=== PATIENT | male | born 1960 | race Caucasian/White ===

== ENCOUNTER 2020-05-25 11:46 | Observation (INO) | payer OTHER ==
[~2020-05-25] VITALS: Ht 175.3 cm; Wt 81.6 kg
[2020-05-25 12:07] LABS: BASOPHILS % (AUTO) 0.1 % (0.0-5.0); EOSINOPHILS % (AUTO) 0.8 % (0.0-8.0); HEMATOCRIT 30.1 % (42-54); LYMPHOCYTES % (AUTO) 19.3 % (21.0-51.0); MEAN CORPUSCULAR HEMOGLOBIN 34.2 pg (27.0-33.0); MEAN CORPUSCULAR HGB CONC 35.2 g/dL (32.0-36.0); MEAN CORPUSCULAR VOLUME 97.1 fL (79-99); MONOCYTES % (AUTO) 8.3 % (3.0-13.0); NEUTROPHILS % (AUTO) 70.9 % (40.0-77.0); PLATELET COUNT (AUTO) 206 K/uL (130-400)
[2020-05-25 12:19] LABS: CREATININE 1.3 mg/dL (0.5-1.5); POTASSIUM 4.1 mmol/L (3.5-5.1)
[2020-05-25 12:22] LABS: PROTHROMBIN TIME 10.9 SEC (9.6-11.6)
[2020-05-25 12:24] LABS: ALBUMIN 3.9 g/dL (3.5-5.0); BILIRUBIN,TOTAL 0.4 mg/dL (0.2-1.0); PARTIAL THROMBOPLASTIN TIME < 20.0 SEC (26.3-35.5)
[2020-05-25] MEDS ORDERED: PANTOPRAZOLE 40 MG/VIAL ONE ×2 (12:50→21:16)
[2020-05-25] MEDS ORDERED: PANTOPRAZOLE SODIUM 80 MG in NS 100ML IVP SCH (13:00)
[2020-05-25] MEDS ORDERED: PANTOPRAZOLE 40 MG/VIAL IVP SCH (13:00)
[2020-05-25] MEDS ORDERED: ACETAMINOPHEN 325 MG TAB PO PRN (16:15)
[2020-05-25] MEDS ORDERED: ONDANSETRON HCL 4 MG/2 ML VIAL IVP PRN (16:15)
[2020-05-25] MEDS ORDERED: PANTOPRAZOLE SODIUM 80 MG in SODIUM CHLORIDE 0.9% 100 ML IVP SCH (16:15)
[2020-05-25 20:40] VITALS: BP 131/96
[2020-05-25 21:51] LABS: HEMATOCRIT 30.2 % (42-54)
[2020-05-25] MEDS ORDERED: TACR1GRA PO (22:09)
[2020-05-25 23:55] VITALS: BP 104/67
[2020-05-26] VITALS (22 sets, daily range): BP systolic 109–147; BP diastolic 72–96
[2020-05-26 05:02] LABS: BASOPHILS % (AUTO) 0.3 % (0.0-5.0); HEMATOCRIT 28.2 % (42-54); LYMPHOCYTES % (AUTO) 21.7 % (21.0-51.0); MEAN CORPUSCULAR HEMOGLOBIN 33.3 pg (27.0-33.0); MEAN CORPUSCULAR HGB CONC 33.7 g/dL (32.0-36.0); MEAN CORPUSCULAR VOLUME 98.9 fL (79-99); MONOCYTES % (AUTO) 12.7 % (3.0-13.0); NEUTROPHILS % (AUTO) 61.8 % (40.0-77.0); PLATELET COUNT (AUTO) 174 K/uL (130-400); RED BLOOD CELL COUNT(AUTO) 2.85 MIL/uL (4.50-6.20); RED CELL DISTRIBUTION WIDTH 13.2 % (11.0-15.5)
[2020-05-26 05:16] LABS: CREATININE 1.2 mg/dL (0.5-1.5); POTASSIUM 4.7 mmol/L (3.5-5.1)
[2020-05-26] MEDS ORDERED: PROPOFOL 10 MG/ML 20ML VIAL IV ONE ×2 (07:22)
[2020-05-26] MEDS ORDERED: SUCCINYLCHOLINE 200MG/10ML SYR ONE (07:22)
[2020-05-26] MEDS ORDERED: LIDOCAINE HCL 1% 20 ML VIAL ONE (07:22)
[2020-05-26] MEDS ORDERED: GLYCOPYRROLATE 1 MG/5 ML SYRINGE ONE (07:22)
[2020-05-26] MEDS ORDERED: PHENYLEPHRINE HCL 10 MG/ML 1ML VIAL IV ONE (08:01)
[2020-05-26 09:54] LABS: HEMATOCRIT 27.2 % (42-54)
[2020-05-26 15:41] LABS: HEMATOCRIT 25.6 % (42-54)
[2020-05-26] MEDS ORDERED: PEG 3350/NA SULF,BICARB,CL/KCL 4000 ML SOLN PO SCH (17:00)
[2020-05-26] MEDS: TACROLIMUS 1 MG CAPSULE PO SCH (20:42)
[2020-05-26 22:00] LABS: HEMATOCRIT 24.7 % (42-54)
[2020-05-27] VITALS (16 sets, daily range): BP systolic 110–138; BP diastolic 70–89
[2020-05-27 04:53] LABS: BASOPHILS % (AUTO) 0.3 % (0.0-5.0); EOSINOPHILS % (AUTO) 5.6 % (0.0-8.0); HEMATOCRIT 23.3 % (42-54); LYMPHOCYTES % (AUTO) 25.1 % (21.0-51.0); MEAN CORPUSCULAR HEMOGLOBIN 33.3 pg (27.0-33.0); MEAN CORPUSCULAR HGB CONC 33.9 g/dL (32.0-36.0); MEAN CORPUSCULAR VOLUME 98.3 fL (79-99); MONOCYTES % (AUTO) 11.7 % (3.0-13.0); NEUTROPHILS % (AUTO) 56.8 % (40.0-77.0); PLATELET COUNT (AUTO) 137 K/uL (130-400); RED BLOOD CELL COUNT(AUTO) 2.37 MIL/uL (4.50-6.20); RED CELL DISTRIBUTION WIDTH 13.2 % (11.0-15.5); WHITE BLOOD COUNT (AUTO) 3.8 K/uL (4.8-10.8)
[2020-05-27 05:12] LABS: CREATININE 1.1 mg/dL (0.5-1.5); POTASSIUM 3.4 mmol/L (3.5-5.1)
[2020-05-27] MEDS ORDERED: LIDOCAINE HCL-MPF 1% 2ML VIAL IV PRN (07:45)
[2020-05-27] MEDS ORDERED: POTASSIUM CHLORIDE 20MEQ/100ML 100 ML IV PRN (07:45)
[2020-05-27] MEDS ORDERED: PANT40TA PO (08:22)
[2020-05-27] MEDS ORDERED: PANTOPRAZOLE SODIUM 40 MG TABLET.DR PO SCH (09:00)
[2020-05-27] MEDS ORDERED: LIDOCAINE HCL 1% 20 ML VIAL ONE (10:01)
[2020-05-27] MEDS ORDERED: PROPOFOL 10 MG/ML 20ML VIAL IV ONE ×2 (10:01)
[2020-05-27] MEDS: TACROLIMUS 1 MG CAPSULE PO SCH (11:53)
== END 2020-05-27 15:15 | disposition home or self-care (01) ==
LOC: EDH 11:46 → EDHIP 16:03 → 3BH 21:08
PROVIDERS: ADMIT Family Medicine; ATTEND Family Medicine
DX: K92.1 Melena (principal); K29.70 Gastritis, unspecified, without bleeding; K29.80 Duodenitis without bleeding; K62.1 Rectal polyp; D64.9 Anemia, unspecified; G62.9 Polyneuropathy, unspecified; Z87.11 Personal history of peptic ulcer disease; Z94.0 Kidney transplant status; Z88.0 Allergy status to penicillin; Z88.1 Allergy status to other antibiotic agents
CPT/HCPCS: 36415 ×3; 45380; 43235; 80048 ×2; 80053; 82270; 85014 ×4; 85018 ×4; 85025 ×3; 85610; 85730; 86850; 86900; 86901; 88305; 93005; 99284; A4222; A4223; A4606; A4620 ×2; A4663; C9113 ×3; G0378 ×43; J0330; J2370; J2704 ×4; J3490; J7507 ×2

== ENCOUNTER 2022-01-23 12:59 | Observation (INO) | payer OTHER ==
[~2022-01-23] VITALS: Ht 177.8 cm; Wt 72.7 kg
[~2022-01-23 12:59] MED LIST: PANT40TA PO; TACR1GRA PO
[2022-01-23 13:47] LABS: BASOPHILS % (AUTO) 0.2 % (0.0-5.0); EOSINOPHILS % (AUTO) 1.3 % (0.0-8.0); LYMPHOCYTES % (AUTO) 13.7 % (21.0-51.0); MEAN CORPUSCULAR HEMOGLOBIN 32.5 pg (27.0-33.0); MEAN CORPUSCULAR HGB CONC 31.2 g/dL (32.0-36.0); MEAN CORPUSCULAR VOLUME 104.3 fL (79-99); MONOCYTES % (AUTO) 9.8 % (3.0-13.0); NEUTROPHILS % (AUTO) 74.5 % (40.0-77.0); NUCLEATED RED BLOOD CELLS 0.3 % (0.0-0.19); PLATELET COUNT (AUTO) 296 K/uL (130-400); RED BLOOD CELL COUNT(AUTO) 1.63 MIL/uL (4.50-6.20); RED CELL DISTRIBUTION WIDTH 14.4 % (11.0-15.5); WHITE BLOOD COUNT (AUTO) 6.1 K/uL (4.8-10.8)
[2022-01-23] MEDS ORDERED: PANTOPRAZOLE 40 MG/VIAL IVP ONE (14:00)
[2022-01-23] MEDS ORDERED: 0.9%NACL 1000ML 1,000 ML IV ONE (14:00)
[2022-01-23] MEDS ORDERED: CEFTRIAXONE 1G VIAL IVP ONE (14:00)
[2022-01-23 14:03] LABS: CREATININE 1.1 mg/dL (0.5-1.5); POTASSIUM 3.5 mmol/L (3.5-5.1)
[2022-01-23 14:08] LABS: ALBUMIN 2.8 g/dL (3.5-5.0)
[2022-01-23] MEDS: CEFTRIAXONE 1G VIAL IVP SCH (17:00)
[2022-01-23] MEDS ORDERED: IOHEXOL 350 MG/ML 100ML INFUS..BTL IV ONE (17:29)
[2022-01-23 23:54] LABS: HEMATOCRIT 21.6 % (42-54)
[2022-01-24] VITALS (21 sets, daily range): BP systolic 107–158; BP diastolic 70–94
[2022-01-24] MEDS: PANTOPRAZOLE 40 MG/VIAL IVP SCH ×3 (02:24→19:54)
[2022-01-24 06:02] LABS: BASOPHILS % (AUTO) 0.2 % (0.0-5.0); EOSINOPHILS % (AUTO) 2.8 % (0.0-8.0); HEMATOCRIT 21.5 % (42-54); MEAN CORPUSCULAR VOLUME 93.9 fL (79-99); MONOCYTES % (AUTO) 10.3 % (3.0-13.0); NEUTROPHILS % (AUTO) 69.3 % (40.0-77.0); PLATELET COUNT (AUTO) 233 K/uL (130-400); RED BLOOD CELL COUNT(AUTO) 2.29 MIL/uL (4.50-6.20); RED CELL DISTRIBUTION WIDTH 18.5 % (11.0-15.5); WHITE BLOOD COUNT (AUTO) 4.6 K/uL (4.8-10.8)
[2022-01-24 06:20] LABS: ALBUMIN 2.5 g/dL (3.5-5.0); CREATININE 1.1 mg/dL (0.5-1.5); MAGNESIUM 1.5 mg/dL (1.80-2.40); POTASSIUM 4.5 mmol/L (3.5-5.1); TOTAL PROTEIN, SERUM 5.6 g/dL (6.0-8.3)
[2022-01-24] MEDS: TACROLIMUS 1 MG CAPSULE PO SCH (09:36)
[2022-01-24] MEDS: LISINOPRIL 20 MG TABLET PO SCH (09:36)
[2022-01-24] MEDS: MAGNESIUM 2GM PREMIX 50ML 50 ML IV PRN (09:37)
[2022-01-24 11:50] LABS: INR 0.93 (0.85-1.15)
[2022-01-24] MEDS ORDERED: PROPOFOL 10 MG/ML 20ML VIAL IV ONE ×2 (13:53)
[2022-01-24] MEDS ORDERED: FENTANYL CITRATE PF 50 MCG/1 ML 2ML VIAL ONE (13:53)
[2022-01-24] MEDS ORDERED: LIDOCAINE HCL 1% 20 ML VIAL ONE (13:53)
[2022-01-24] MEDS ORDERED: LACTULOSE 20 GM/30 ML UDCUP PO ONE ×2 (15:00→17:00)
[2022-01-24] MEDS ORDERED: PEG 3350/NA SULF,BICARB,CL/KCL 4000 ML SOLN PO ONE (15:00)
[2022-01-24] MEDS ORDERED: LACTULOSE 20 GM/30 ML UDCUP ONE (15:23)
[2022-01-24] MEDS: CEFTRIAXONE 1G VIAL IVP SCH (16:36)
[2022-01-25] VITALS (13 sets, daily range): BP systolic 102–131; BP diastolic 62–83
[2022-01-25 05:10] LABS: BASOPHILS % (AUTO) 0.2 % (0.0-5.0); HEMATOCRIT 22.9 % (42-54); MEAN CORPUSCULAR HEMOGLOBIN 30.7 pg (27.0-33.0); MEAN CORPUSCULAR HGB CONC 32.3 g/dL (32.0-36.0); MONOCYTES % (AUTO) 11.5 % (3.0-13.0); NEUTROPHILS % (AUTO) 66.6 % (40.0-77.0); PLATELET COUNT (AUTO) 276 K/uL (130-400); RED BLOOD CELL COUNT(AUTO) 2.41 MIL/uL (4.50-6.20); RED CELL DISTRIBUTION WIDTH 17.5 % (11.0-15.5); WHITE BLOOD COUNT (AUTO) 4.4 K/uL (4.8-10.8)
[2022-01-25 05:26] LABS: CREATININE 1.1 mg/dL (0.5-1.5); MAGNESIUM 1.7 mg/dL (1.80-2.40); POTASSIUM 4.7 mmol/L (3.5-5.1)
[2022-01-25 05:29] LABS: INR 0.94 (0.85-1.15); PROTHROMBIN TIME 10.3 SEC (9.6-11.6)
[2022-01-25 05:30] LABS: PARTIAL THROMBOPLASTIN TIME 23.1 SEC (26.3-35.5)
[2022-01-25] MEDS: MAGNESIUM 2GM PREMIX 50ML 50 ML IV PRN (05:39)
[2022-01-25] MEDS: LISINOPRIL 20 MG TABLET PO SCH (08:17)
[2022-01-25] MEDS: TACROLIMUS 1 MG CAPSULE PO SCH (08:17)
[2022-01-25] MEDS: PANTOPRAZOLE 40 MG/VIAL IVP SCH (08:17)
[2022-01-25] MEDS ORDERED: PROPOFOL 10 MG/ML 20ML VIAL IV ONE (14:44)
[2022-01-25 16:09] LABS: HEMATOCRIT 24.7 % (42-54)
[2022-02-15] MEDS ORDERED: PANT40TA55 PO (16:58)
== END 2022-01-25 18:00 | disposition home or self-care (01) ==
LOC: EDH 12:59 → EDHIP 23:05 → INTOOBSV 23:05 → 3DH 01-24 02:52
PROVIDERS: ADMIT Hospitalist; ATTEND Hospitalist
DX: K57.90 Diverticulosis of intestine, part unspecified, without perforation or abscess without bleeding (principal); Z20.822 Contact with and (suspected) exposure to COVID-19; D62 Acute posthemorrhagic anemia; R10.9 Unspecified abdominal pain; I10 Essential (primary) hypertension; J44.9 Chronic obstructive pulmonary disease, unspecified; G89.29 Other chronic pain; M54.9 Dorsalgia, unspecified; K27.9 Peptic ulcer, site unspecified, unspecified as acute or chronic, without hemorrhage or perforation; K21.9 Gastro-esophageal reflux disease without esophagitis; K29.00 Acute gastritis without bleeding; K29.60 Other gastritis without bleeding; K29.80 Duodenitis without bleeding; Z79.899 Other long term (current) drug therapy; Z87.11 Personal history of peptic ulcer disease; Z87.891 Personal history of nicotine dependence; Z96.653 Presence of artificial knee joint, bilateral; Z98.890 Other specified postprocedural states
CPT/HCPCS: 96361; 96375; 36430; 99285; 84484; 80053 ×2; 85025 ×3; 85014 ×2; 85018 ×2; 86850; 86900; 86901; 86923; 83605; 36415 ×3; 74176; 93005; 96376 ×2; 96365; 96366 ×2; 83735 ×2; 85610 ×2; 80197; 88305; 88342; 87635; 43239; 80048; 85730; 45378; P9016 ×2; J7030 ×3; J0696 ×2; C9113 ×5; G0378 ×25; J3475 ×2; J3010; J2704 ×2; J7507 ×2; A4620 ×2; A4223 ×2; A4222 ×2; A4216; A4657; A7002; Q9967

== ENCOUNTER 2022-02-04 14:00 | Emergency (ER) | payer OTHER ==
[~2022-02-04] VITALS: Ht 175.3 cm; Wt 77.1 kg
[2022-02-04 14:58] LABS: BASOPHILS % (AUTO) 0.3 % (0.0-5.0); EOSINOPHILS % (AUTO) 1.3 % (0.0-8.0); HEMATOCRIT 27.6 % (42-54); LYMPHOCYTES % (AUTO) 15.6 % (21.0-51.0); MEAN CORPUSCULAR HEMOGLOBIN 28.8 pg (27.0-33.0); MEAN CORPUSCULAR HGB CONC 30.8 g/dL (32.0-36.0); MEAN CORPUSCULAR VOLUME 93.6 fL (79-99); MONOCYTES % (AUTO) 11.1 % (3.0-13.0); NEUTROPHILS % (AUTO) 71.1 % (40.0-77.0); PLATELET COUNT (AUTO) 436 K/uL (130-400); RED BLOOD CELL COUNT(AUTO) 2.95 MIL/uL (4.50-6.20); RED CELL DISTRIBUTION WIDTH 15.9 % (11.0-15.5); WHITE BLOOD COUNT (AUTO) 8.7 K/uL (4.8-10.8)
[2022-02-04 15:25] LABS: ALBUMIN 3.1 g/dL (3.5-5.0); CREATININE 1.1 mg/dL (0.5-1.5); POTASSIUM 4.5 mmol/L (3.5-5.1); TOTAL PROTEIN, SERUM 7.1 g/dL (6.0-8.3)
[2022-02-04 17:13] VITALS: BP 137/93
[2022-02-15] MEDS ORDERED: PANT40TA55 PO (16:58)
== END 2022-02-04 17:55 | disposition home or self-care (01) ==
LOC: EDH 14:00
DX: R07.89 Other chest pain (principal); R53.83 Other fatigue; K21.9 Gastro-esophageal reflux disease without esophagitis; I10 Essential (primary) hypertension
CPT/HCPCS: 36415; 71045; 80053; 84484; 85025; 93005

== ENCOUNTER 2023-12-14 16:01 | Emergency (ER) | payer OTHER ==
[~2023-12-14] VITALS: Ht 177.8 cm; Wt 81.6 kg
[~2023-12-14 16:01] MED LIST changes: -PANT40TA PO; +PANT40TA55 PO
[2023-12-14] MEDS: HYDROcodone/APAP 5/325 1 TAB TABLET PO ONE (16:41)
[2023-12-14] MEDS ORDERED: ACET-66 PO (17:17)
[2023-12-14 17:26] VITALS: BP 122/70; PULSE 82; RESP 20; TEMP 98.1; O2SAT 99
== END 2023-12-14 17:26 | disposition home or self-care (01) ==
LOC: EDH 16:01
DX: S80.12XA Contusion of left lower leg, initial encounter (principal); I10 Essential (primary) hypertension; M19.90 Unspecified osteoarthritis, unspecified site; Z79.621 Long term (current) use of calcineurin inhibitor; Z88.0 Allergy status to penicillin; Z88.1 Allergy status to other antibiotic agents; Z94.0 Kidney transplant status; W23.0XXA Caught, crushed, jammed, or pinched between moving objects, initial encounter; Y93.89 Activity, other specified; Y92.89 Other specified places as the place of occurrence of the external cause; Y99.8 Other external cause status
CPT/HCPCS: 73590